=== PATIENT | female | born 1925 | race Caucasian/White ===

== ENCOUNTER → 2016-04-05 | Outpatient (REF) | payer MEDICARE, MEDICAID ==
[~2016-04-05] MED LIST: /WARF25TA; ACET65TA; ALLE25CA; ARIMIDEX; BENT20TA; CALC500T49; CALCCHW12; CALCTAB28 PO; COMBVENT; COUM1TAB17 PO; DOCU100C PO; DOCU10CA PO; FLEEENE4 PR; FLON0.05; FLON0.05 INH; HALO05TA PO; HYDR12.55 PO; IBUP200C PO; IBUP600T; IBUPOTC PO; K-LO20PO; LASI40TA; LEVO2TA PO; LEVO88TA3 PO; LIPI10TA; LIPI20TA PO; LORT5TAB PO; MIRA3350 PO; MOM30SS PO; MULTTAB63 PO; OCEAN NASAL SPRAY; OMEP40CA2 PO; POTA10CA2; PRIL20CA PO; SYNT100T PO; THERGRAN; TRAM50TA2; TUMS500C PO; TYLE325T5 PO; VITMTA PO; XANA0.25 PO; ZITHTAB PO; ZOLO25TA PO; [UNRECOGNIZED DRUG - OTHER]
[2016-04-05 09:26] LABS: ALBUMIN 3.4 GM/DL (3.2-5.2); ALBUMIN/GLOBULIN RATIO 1.31 (1.00-1.93); ALKALINE PHOSPHATASE 62 U/L (45-117); ALT/SGPT 18 U/L (12-78); ANION GAP 9 MEQ/L (8-16); AST/SGOT 13 U/L (15-37); BILIRUBIN,TOTAL 0.3 MG/DL (0.2-1.0); BLOOD UREA NITROGEN 19 MG/DL (7-18); CALCIUM LEVEL 8.7 MG/DL (8.8-10.2); CARBON DIOXIDE LEVEL 28 MEQ/L (21-32); CHLORIDE LEVEL 107 MEQ/L (98-107); CREATININE FOR GFR 0.86 MG/DL (0.55-1.02); GLOMERULAR FILTRATION RATE > 60.0 (>32); GLUCOSE, FASTING 74 MG/DL (83-110); POTASSIUM SERUM 4.1 MEQ/L (3.5-5.1); SODIUM LEVEL 144 MEQ/L (136-145)
== END | disposition home or self-care (01) ==
LOC: SKLAB8 07:00
PROVIDERS: ATTEND Family Medicine
DX: E03.9 Hypothyroidism, unspecified (principal); I10 Essential (primary) hypertension

== ENCOUNTER → 2016-07-05 | Outpatient (REF) | payer MEDICARE, MEDICAID ==
[2016-07-05 10:26] LABS: FREE T4 1.08 NG/DL (0.76-1.46)
== END ==
LOC: SKLAB8 08:00
PROVIDERS: ATTEND Family Medicine
DX: E03.9 Hypothyroidism, unspecified (principal)

== ENCOUNTER → 2016-10-04 | Outpatient (REF) | payer MEDICARE, MEDICAID ==
[~2016-10-04] MED LIST changes: -DOCU100C PO; +DOCU100C16 PO; +HALO0.5H PO; -HALO05TA PO; -IBUP200C PO; +IBUP200C10 PO
[2016-10-04 09:41] LABS: ALBUMIN 3.4 GM/DL (3.2-5.2); ALBUMIN/GLOBULIN RATIO 1.17 (1.00-1.93); ALKALINE PHOSPHATASE 59 U/L (45-117); ALT/SGPT 21 U/L (12-78); ANION GAP 11 MEQ/L (8-16); AST/SGOT 15 U/L (15-37); BILIRUBIN,TOTAL 0.3 MG/DL (0.2-1.0); BLOOD UREA NITROGEN 21 MG/DL (7-18); CARBON DIOXIDE LEVEL 24 MEQ/L (21-32); CHLORIDE LEVEL 108 MEQ/L (98-107); CREATININE FOR GFR 0.82 MG/DL (0.55-1.02); FREE T4 1.07 NG/DL (0.76-1.46); GLOMERULAR FILTRATION RATE > 60.0 (>32); GLUCOSE, FASTING 73 MG/DL (83-110); POTASSIUM SERUM 4.3 MEQ/L (3.5-5.1); SODIUM LEVEL 143 MEQ/L (136-145); TOTAL PROTEIN 6.3 GM/DL (6.4-8.2)
== END ==
LOC: SKLAB8 07:00
PROVIDERS: ATTEND Family Medicine
DX: I10 Essential (primary) hypertension (principal); E03.9 Hypothyroidism, unspecified